=== PATIENT | male | born 1990 | race Caucasian/White ===

== ENCOUNTER 2016-04-21 00:34 | Observation (INO) | payer MEDICAID, OTHER ==
[~2016-04-21] VITALS: Ht 175.3 cm; Wt 60.0 kg
[2016-04-21 00:53] LABS: DAU SCREEN DISCLAIMER
[2016-04-21] MEDS ORDERED: LORazepam 1MG TABLET PO ONE (01:00)
[2016-04-21 01:09] LABS: HEMOGLOBIN 15.5 g/dL (13.7-18.0)
[2016-04-21] MEDS ORDERED: LORazepam 1MG TABLET ONE (01:15)
[2016-04-21 01:18] LABS: ASPARTATE AMINO TRANSFERASE 16 U/L (15-37); BLOOD UREA NITROGEN 9 mg/dL (7-18)
[2016-04-21 01:43] LABS: ACETAMINOPHEN < 2 mcg/mL (10-30)
[2016-04-21 03:30] VITALS: BP 100/60
[2016-04-21] MEDS ORDERED: ONDANSETRON ODT 4 MG PO PRN (03:30)
[2016-04-21] MEDS ORDERED: ACETAMINOPHEN 325 MG TABLET PO PRN (03:30)
[2016-04-21] MEDS ORDERED: LORazepam 1MG TABLET PO PRN (03:30)
[2016-04-21 07:52] VITALS: BP 115/69
[2016-04-21] MEDS ORDERED: THIAMINE 100MG TABLET PO SCH (09:00)
[2016-04-21] MEDS ORDERED: MULTIVITAMIN 1 TABLET PO SCH (09:00)
[2016-04-21] MEDS ORDERED: FOLIC ACID 1 MG TABLET PO SCH (09:00)
[2016-04-21] MEDS ORDERED: CYANOCOBALAMIN 1,000 MCG TABLET PO SCH (09:00)
== END 2016-04-21 17:56 | disposition still patient (30) ==
LOC: SUATTDRO 02:59 → ED 03:00 → 3E 03:03
DX: R45.851 Suicidal ideations (principal); E87.1 Hypo-osmolality and hyponatremia; F10.129 Alcohol abuse with intoxication, unspecified; F32.9 Major depressive disorder, single episode, unspecified; Z73.5 Social role conflict, not elsewhere classified; E80.6 Other disorders of bilirubin metabolism; F17.210 Nicotine dependence, cigarettes, uncomplicated; Z91.5 Personal history of self-harm
CPT/HCPCS: 36415; 80053; 80307; 80329; 81003; 85025; 99285; G0378; G0480

== ENCOUNTER 2016-11-15 02:43 | Emergency (ER) | payer BC, OTHER ==
[~2016-11-15] VITALS: Ht 177.8 cm; Wt 67.0 kg
[2016-11-15 02:54] VITALS: BP 120/60
[2016-11-15 03:16] LABS: HEMATOCRIT 48.4 % (39.2-51.8); HEMOGLOBIN 16.8 g/dL (13.7-18.0); WHITE BLOOD COUNT 8.9 x10^3/uL (3.4-10)
[2016-11-15 03:28] LABS: ASPARTATE AMINO TRANSFERASE 20 U/L (15-37); BLOOD UREA NITROGEN 9 mg/dL (7-18)
[2016-11-15 03:32] LABS: IS PT STATUS REG ER OR PRE ER? YES
== END 2016-11-15 04:39 | disposition home or self-care (01) ==
LOC: ED 04:33
DX: R07.89 Other chest pain (principal); M94.0 Chondrocostal junction syndrome [Tietze]
CPT/HCPCS: 36415; 71010; 80053; 84484; 85025; 93005; 99285